=== PATIENT | female | born 1965 | race Caucasian/White ===

== ENCOUNTER → 2017-05-30 | Outpatient (CLI) | payer OTHER ==
[~2017-05-30] MED LIST: ATV5 PO; HYDR-5688 PO; RANI75TA7 PO; TRAZ50TA35 PO
--- NOTE | 2017-05-30 11:36 | DIAGNOSTIC IMAGING REPORT ---
DOUBLE CONTRAST UPPER GI SERIES CLINICAL HISTORY: Hiatal hernia. COMPARISON STUDY: PET/CT dated 05/20/2008. TECHNIQUE: A standard air contrast upper GI series was performed. Spot images of the esophagus and stomach were obtained in multiple obliquities both upright and prone. FINDINGS: The patient swallowed barium without difficulty. The esophagus is structurally normal without evidence of intrinsic or extrinsic mass. The esophageal mucosal pattern is normal. Gastroesophageal reflux was observed during the examination. The gastroesophageal junction distends normally. There is a large hiatal hernia, with over half of the stomach located in the thoracic cavity. No mass or ulceration is identified. There was no evidence of gastritis. The duodenal bulb and sweep are unremarkable. Fluoroscopy time: 1.9 minutes. Fluoroscopic images: 22 IMPRESSION: 1. Large hiatal hernia, with over half of the stomach located in the thoracic cavity. 2. Gastroesophageal reflux was observed during the examination. Electronically signed by: Kelechi Mosley M.D. 05/30/2017 11:35 AM Dictated Date/Time: 05/30/2017 11:33 AM
== END | disposition home or self-care (01) ==
LOC: C.RAD 10:57
PROVIDERS: ATTEND Surgery
DX: K44.9 Diaphragmatic hernia without obstruction or gangrene (principal)